=== PATIENT | female | born 1985 | race Caucasian/White ===

== ENCOUNTER 2016-10-16 01:16 | Emergency (ER) | payer OTHER ==
[~2016-10-16] VITALS: Ht 175.3 cm; Wt 116.1 kg
--- NOTE | ~2016-10-16 | CT4 ---
[facility] A Service of [facility] RADIOLOGY TEXT RESULTS PATIENT: EDWARD GIL LOCATION: [facility] : 81 UNIT #: [id number] AGE: [address]: Surya Hay MD SEX: F ORDER DR: [id number] [facility] [address] [facility] [address] [facility]. [place], [place] [address] [id number] MR#: [id number] Acc #: [id number] NAME: EDWARD GIL : 1985 SEX: F STUDY DATE/TIME: 10/16/2016 2:53 UNIT: [facility] ROOM: STUDY DESCRIPTION: CT Abd and Pelv Wo Cont Attending Physician: Fabián Hay M.D. Ordering Physician: Ed Doctor [id number] [facility] REPORT This report is preliminary unless electronic signature is present EXAM CT abdomen and pelvis noncontrast, kidney stone protocol, 10/16/2016 HISTORY 31-year-old female in the ED complaining of 1-2 day history of bilateral flank pain. History of kidney stones. TECHNIQUE CT examination of the abdomen and pelvis without oral or IV contrast using kidney stone protocol. This CT exam was performed with one or more of the following radiation dose reduction techniques: automatic exposure control, adjustment of mA and/or kV according to patient size, and iterative reconstruction. FINDINGS ABDOMEN FINDINGS: There is a 5.0 mm obstructing calculus in the distal left ureter at the UVJ causing mild left hydronephrosis. Kidneys, ureters and bladder are otherwise negative. Cholecystectomy. Liver, pancreas and spleen are negative. Small bowel and colon are normal in caliber and appearance. Normal appendix. Normal caliber abdominal aorta. PELVIS FINDINGS: Hysterectomy. Ovaries, bladder and rectum are negative. No inguinal hernia. IMPRESSION 1. Obstructing 5.0 mm calculus in the left distal ureter at the UVJ causing mild left hydronephrosis. No additional renal or urinary tract stone material is seen. 2. Cholecystectomy and hysterectomy. Normal appendix. [facility] A Service of [facility] RADIOLOGY TEXT RESULTS PATIENT: EDWARD GIL LOCATION: [facility] : [birth year] UNIT #: [id number] AGE: [address]: Surya Hay MD SEX: F ORDER DR: Dictated by... Cyril Torres M.D. THIS IS AN ELECTRONICALLY VERIFIED REPORT Cyril Torres M.D. at 10/16/2016 5:07 PM Kirit TD: 10/16/2016 09:58 JOB #: [id number] MEDICAL IMAGING REPORT Page 1 of 1 COPY
[~2016-10-16 01:16] MED LIST: BACTRIM DS TABL1 TA1 PO; FLOMAX0.4 M1 PO; GLUCOPHAGE XR500 MG PO; PERCOCET PO; PHENERGAN25 MG PO; PRENATAL MULITV1 TAB PO; PROVERA PO; VICODIN 5/500 T1 TAB PO; VICODIN PO; VOLTAREN75 MG PO; ZOLOFT PO
[2016-10-16 02:36] LABS: URINE SOURCE CLEAN CATCH
[2016-10-16 02:42] LABS: BASOPHIL% 0.3 % (0-2.5); DIFF IND NO; EOSINOPHIL# 0.3 X10e3 (0-0.7); EOSINOPHIL% 2.3 % (0.0-7.0); HEMATOCRIT 41.3 % (35.0-45.0); HEMOGLOBIN 14.4 gm/dL (12.0-16.0); LYMPHOCYTE# 3.7 X10e3 (1.0-3.5); MEAN CELL VOLUME 85.6 FL (83-96); MEAN CORPUSCULAR HEMOGLOBIN 29.9 PG (28-34); MEAN PLATELET VOLUME 10.7 FL (6.5-11.5); MONOCYTE# 0.7 X10e3 (0-1.0); MONOCYTE% 5.9 % (3.0-12.0); NEUTROPHIL# 6.9 X10e3 (1.5-7.1); NEUTROPHIL% 59.5 % (40-75); PLATELET COUNT 177 X10e3 (140-420); RED BLOOD COUNT 4.83 X10e (3.90-5.30); RED CELL DISTRIBUTION WIDTH 13.6 % (11.0-15.5); WHITE BLOOD COUNT 11.6 X10e3 (4.0-10.5)
[2016-10-16 02:45] LABS: URINE APPEARANCE CLOUDY; URINE BILIRUBIN NEG (NEG); URINE BLOOD 3+ (NEG); URINE COLOR YELLOW; URINE GLUCOSE NEG (NEG); URINE KETONE NEG (NEG); URINE LEUKOCYTE ESTERASE NEG (NEG); URINE NITRATE NEG (NEG); URINE PROTEIN TRACE (NEG); URINE SPECIFIC GRAVITY 1.025 (1.003-1.035)
[2016-10-16 02:46] LABS: CULTURE INDICATED? YES; URBCS1 AUWI 100-200 /[HPF] (0-2); URINE BACTERIA AUWI 2+ (NEGATIVE); URINE SQUAMOUS EPITHELIAL CELL FEW /[HPF]
[2016-10-16 03:07] LABS: BUN/CREATININE RATIO 17.5; CALCIUM SERUM 9.6 mg/dL (8.4-10.2); CREATININE SERUM 0.8 mg/dL (0.6-1.4); POTASSIUM 3.7 mmol/L (3.5-5.1)
== END 2016-10-16 03:55 | disposition home or self-care (01) ==
LOC: CED 01:16
PROVIDERS: Emergency Medicine
DX: N13.2 Hydronephrosis with renal and ureteral calculous obstruction (principal); F17.210 Nicotine dependence, cigarettes, uncomplicated; Z90.710 Acquired absence of both cervix and uterus; Z88.1 Allergy status to other antibiotic agents
CPT/HCPCS: 36415; 74176; 80048; 81003; 85025; 87086; 96374; 99284; J1885

== ENCOUNTER 2016-10-30 09:27 | Emergency (ER) | payer OTHER ==
[~2016-10-30] VITALS: Ht 175.3 cm; Wt 116.1 kg
--- NOTE | ~2016-10-30 | CR7 ---
[facility] A Service of [facility] RADIOLOGY TEXT RESULTS PATIENT: EDWARD GIL LOCATION: [facility] : 81 UNIT #: [id number] AGE: [address]: Alfonso Carson MD SEX: F ORDER DR: [id number] [facility]. [place], [place] [address] [id number] MR#: [id number] Acc #: [id number] NAME: EDWARD GIL : 1985 SEX: F STUDY DATE/TIME: 10/30/2016 UNIT: [facility] ROOM: STUDY DESCRIPTION: CR Abdomen Single AP View Attending Physician: Alfonso Carson M.D. Ordering Physician: [facility] MEDICAL IMAGING REPORT This report is preliminary unless electronic signature is present EXAM Abdomen one-view 10/30/2016 1039 hours HISTORY 15-day history of lower abdominal pain, nausea, vomiting with possible kidney stone. COMPARISON CT abdomen 10/16/2016. FINDINGS Single supine view of the abdomen and pelvis demonstrates a nonspecific bowel gas pattern without evidence of obstruction. There are clips consistent with prior cholecystectomy. No radiopaque calculi are seen over the kidneys or expected course of the ureters. The 5 mm calculus seen at the left ureterovesical junction on recent CT 10/16/2016 is not detected on plain film. It was, however, difficult to detect on the topogram from that CT and may not be detectable on plain film. IMPRESSION 1. No bowel obstruction seen. 2. No renal or ureteral calculi are detectable. The 5 mm calculus seen in the left ureterovesical junction on the relatively recent CT abdomen and pelvis 10/16/2016 is not detected. Note, however, that this is difficult to discriminate on the CT topogram image and it may not be easily seen on plain film. Dictated by... Nickie Gonzalez M.D. THIS IS AN ELECTRONICALLY VERIFIED REPORT Nickie Gonzalez M.D. at 10/31/2016 12:32 PM [facility] A Service of [facility] RADIOLOGY TEXT RESULTS PATIENT: EDWARD GIL LOCATION: [facility] : 81 UNIT #: [id number] AGE: [address]: Alfonso Carson MD SEX: F ORDER DR: EVELYNE/robina TD: 10/30/2016 21:41 JOB #: [id number] MEDICAL IMAGING REPORT Page 1 of 1 COPY
[2016-10-30 10:48] LABS: BASOPHIL% 0.2 % (0-2.5); EOSINOPHIL# 0.2 X10e3 (0-0.7); HEMOGLOBIN 13.9 gm/dL (12.0-16.0); LYMPHOCYTE# 2.3 X10e3 (1.0-3.5); LYMPHOCYTE% 27.6 % (17.0-45.0); MEAN CELL VOLUME 86.1 FL (83-96); MEAN CORPUSCULAR HEMOGLOBIN 29.8 PG (28-34); MEAN CORPUSCULAR HGB CONC 34.7 g/dL (30-36); MEAN PLATELET VOLUME 10.3 FL (6.5-11.5); MONOCYTE# 0.5 X10e3 (0-1.0); MONOCYTE% 5.6 % (3.0-12.0); NEUTROPHIL# 5.3 X10e3 (1.5-7.1); NEUTROPHIL% 63.6 % (40-75); PLATELET COUNT 185 X10e3 (140-420); RED BLOOD COUNT 4.64 X10e (3.90-5.30); RED CELL DISTRIBUTION WIDTH 13.5 % (11.0-15.5); WHITE BLOOD COUNT 8.3 X10e3 (4.0-10.5)
[2016-10-30 10:50] LABS: DIFF IND NO
[2016-10-30 10:54] LABS: URINE SOURCE CATH
[2016-10-30 11:02] LABS: URINE APPEARANCE CLEAR; URINE BILIRUBIN NEG (NEG); URINE BLOOD NEG (NEG); URINE COLOR YELLOW; URINE GLUCOSE NEG (NEG); URINE KETONE NEG (NEG); URINE LEUKOCYTE ESTERASE NEG (NEG); URINE NITRATE NEG (NEG); URINE PH 7.5 (5-8); URINE PROTEIN NEG (NEG); URINE SPECIFIC GRAVITY 1.018 (1.003-1.035)
[2016-10-30 11:05] LABS: CULTURE INDICATED? NO
[2016-10-30 11:28] LABS: ALBUMIN SERUM 4.2 g/dL (3.5-5.0); BILIRUBIN, DIRECT 0.1 mg/dL (0.0-0.2); BILIRUBIN,INDIRECT 0.5 mg/dL (0.0-0.9); BILIRUBIN,TOTAL 0.6 mg/dL (0.2-2.0); BUN/CREATININE RATIO 18.33; CALCIUM SERUM 8.8 mg/dL (8.4-10.2); CREATININE SERUM 0.6 mg/dL (0.6-1.4); GLOM FILT RATE Estimated 119.8 mL/min (>60); POTASSIUM 4.2 mmol/L (3.5-5.1)
== END 2016-10-30 13:40 | disposition home or self-care (01) ==
LOC: CED 09:27
PROVIDERS: Emergency Medicine
DX: R30.0 Dysuria (principal); M54.9 Dorsalgia, unspecified; I10 Essential (primary) hypertension; Z90.710 Acquired absence of both cervix and uterus; F17.200 Nicotine dependence, unspecified, uncomplicated; Z88.1 Allergy status to other antibiotic agents
CPT/HCPCS: 36415; 51701; 74000; 80048; 80076; 81003; 83690; 85025; 99284